=== PATIENT | male | born 2000 | race Asian ===

== ENCOUNTER 2024-12-16 18:45 | Emergency (ER) | payer OTHER ==
[~2024-12-16] VITALS: Ht 170.2 cm; Wt 94.8 kg
[2024-12-16] MEDS ORDERED: LIDOCAINE 1% INJ 50 ML MDV IJ ONE (19:12)
[2024-12-16] MEDS: LIDOCAINE 1%-EPI 1:100,000 50 ML VIAL IJ ONE (19:36)
[2024-12-16 19:48] VITALS: BP 142/80; TEMP 98.1; O2SAT 97
== END 2024-12-16 19:49 | disposition home or self-care (01) ==
LOC: ER 18:49
DX: S61.011A Laceration without foreign body of right thumb without damage to nail, initial encounter (principal); Z91.010 Allergy to peanuts; W26.0XXA Contact with knife, initial encounter; Y93.89 Activity, other specified; Y92.89 Other specified places as the place of occurrence of the external cause; Y99.8 Other external cause status
CPT/HCPCS: 12001; 99282; J3490